=== PATIENT | female | born 1970 | race Caucasian/White ===

== ENCOUNTER 2017-02-22 19:09 | Inpatient (IN) | payer BC ==
[~2017-02-22] VITALS: Ht 157.5 cm; Wt 96.8 kg
[~2017-02-22 19:09] MED LIST: ATROPINE SULFATE 0.1 MG/ML 10 ML SYRINGE IVP ONE; DEXTROSE 50%-WATER 25 GM/50 ML SYRINGE IVP ONE; EPINEPHrine 1:10,000 [1 MG/10 ML] SYRINGE IVP ONE; SODIUM BICARBONATE [ADULT] 8.4% 50 MEQ/50 ML SYRINGE IVP ONE
[2017-02-22] MEDS ORDERED: NOREPINEPHRINE 4 MG/D5%-WATER 250 ML IV PRN (19:30)
[2017-02-22 19:38] LABS: BASOPHILS % (AUTO) 0.5 % (0.0-2.0); HEMATOCRIT 28.5 % (36-46); HEMOGLOBIN 8.7 g/dL (12.0-16.0); LYMPHOCYTES # (AUTO) 2.1 K/uL (1.0-4.8); LYMPHOCYTES % (AUTO) 42.2 % (22.0-44.0); MEAN CORPUSCULAR HEMOGLOBIN 23.1 pg (26.0-34.0); MEAN CORPUSCULAR HGB CONC 30.6 G/dL (31.0-37.0); MEAN CORPUSCULAR VOLUME 75 fL (80-100); MONOCYTES # (AUTO) 0.2 K/uL (0.1-1.0); MONOCYTES % (AUTO) 3.7 % (2.0-9.0); NEUTROPHILS # (AUTO) 2.7 K/uL (1.8-7.7); NEUTROPHILS % (AUTO) 52.6 % (40.0-70.0); PLATELET COUNT (AUTO) 130 K/uL (150-450); RED BLOOD CELL COUNT(AUTO) 3.79 MIL/uL (4.00-5.20); RED CELL DISTRIBUTION WIDTH 22.7 % (11.5-14.5); WHITE BLOOD COUNT (AUTO) 5.1 K/uL (4.5-11.0)
[2017-02-22 19:49] LABS: INR 1.3 (0.9-1.1); PROTHROMBIN TIME 13.4 SEC (9.4-11.6)
[2017-02-22 19:56] LABS: RBC MORPHOLOGY COMMENT ABNORMAL RBC MORPH
[2017-02-22 19:58] LABS: B-TYPE NATRIURETIC PEPTIDE 256 pg/mL (0-100)
[2017-02-22 20:07] LABS: ALANINE AMINOTRANSFERASE 58 U/L (12-78); ANION GAP 19 mmol/L (8-16); ASPARTATE AMINOTRANSFERASE 85 U/L (15-37); BILIRUBIN,TOTAL 0.4 mg/dL (0.1-1.0); CALCIUM, TOTAL 7.9 mg/dL (8.8-10.5); CARBON DIOXIDE 18 mmol/L (22-29); CHLORIDE 95 mmol/L (98-107); CREATINE KINASE, TOTAL 273 U/L (26-192); CREATININE 1.27 mg/dL (0.60-1.30); GLOMERULAR FILTR. RATE CALC 45 mL/min (>60); POTASSIUM 3.9 mmol/L (3.5-5.1); SODIUM SERUM 132 mmol/L (136-145); UREA NITROGEN, BLOOD 8 mg/dL (7-18)
[2017-02-22 20:08] LABS: ALBUMIN 2.7 g/dL (3.4-5.0); TOTAL PROTEIN, SERUM 7.3 g/dL (6.4-8.2)
[2017-02-22 20:11] LABS: CREATINE KINASE MB 3.9 ng/mL (0-5)
[2017-02-22 20:19] LABS: ABG A-A DIFF O2 497.9 mmHg (10-20.0); ABG BASE EXCESS -21.2 mmol/L (-2.0-3.0); ABG OXYHEMOGLOBIN 93.9 % (94.0-100.0); ABG PCO2 60 mmHg (35-45); TEMPERATURE, FAHRENHEIT, BG 95.9 FAHREN (96.0-98.6)
[2017-02-22 20:21] LABS: ABG PH 6.904 (7.35-7.450)
[2017-02-22 20:22] LABS: ALLEN TEST, BLOOD GAS NO
[2017-02-22] MEDS ORDERED: PHENYLEPHRINE 200 MG/D5%-WATER 250 ML IV PRN (20:30)
[2017-02-22] MEDS ORDERED: PROPOFOL 1000 MG/ISO-OSM 100 ML IV PRN (21:32)
[2017-02-22] MEDS ORDERED: ALBUTEROL SULFATE 2.5 MG/0.5 ML NEB SOLUTION NEB PRN (21:45)
[2017-02-22] MEDS ORDERED: MORPHINE SULFATE 2 MG/ML SYRINGE IVP PRN (21:45)
[2017-02-22] MEDS ORDERED: DEXTROSE 50%-WATER 25 GM/50 ML SYRINGE IVP PRN (21:45)
[2017-02-22] MEDS ORDERED: ACETAMINOPHEN 325 MG TABLET PO PRN (21:45)
[2017-02-22 22:29] LABS: APPEARANCE,URINE CLOUDY (CLEAR); GLUCOSE, URINE (UA) >=1000 mg/dL (NEGATIVE); KETONES,URINE NEGATIVE (NEGATIVE); LEUKOCYTE ESTERASE ,URINE NEGATIVE (NEGATIVE); OCCULT BLOOD,URINE LARGE (NEGATIVE); PROTEIN,URINE SEE CONFIRM (NEGATIVE)
[2017-02-22 22:43] LABS: ADD UA MICROSCOPIC YES
[2017-02-22 23:13] LABS: SULFOSALICYLIC ACID,URINE 2+ (Negative)
[2017-02-22] MEDS ORDERED: SODIUM CHLORIDE 0.9% 250 ML IV ONE (23:52)
[2017-02-22] MEDS: HEPARIN SODIUM,PORCINE 5,000 UNITS/ML VIAL SQ SCH (23:56)
[2017-02-23] VITALS (7 sets, daily range): BP systolic 44–103; BP diastolic 27–74
[2017-02-23] MEDS: INSULIN ASPART 100 UNITS/ML SQ PRN ×2 (00:02→05:12)
[2017-02-23] MEDS ORDERED: INFLUENZA VIRUS VACCINE QVS 2016-17 (3YR+)/PF 60 MCG/0.5 ML SYRINGE IM ONE (01:30)
[2017-02-23] MEDS ORDERED: PNEUMOCOCCAL VACCINE POLYVALENT 0.5 ML VIAL [PPSV23] IM ONE (01:30)
[2017-02-23] MEDS ORDERED: 0.9% SODIUM CHLORIDE 10 ML SYRINGE IVP PRN (01:30)
[2017-02-23] MEDS: IPRATROPIUM BROMIDE 0.5 MG/2.5 ML NEB SOLUTION NEB SCH ×4 (01:55→22:29)
[2017-02-23] MEDS: ALBUTEROL SULFATE 2.5 MG/0.5 ML NEB SOLUTION NEB SCH ×4 (01:55→22:29)
[2017-02-23] MEDS ORDERED: PHENYLEPHRINE 200 MG/D5%-WATER 250 ML IV PRN (02:18)
[2017-02-23] MEDS: NOREPINEPHRINE 4 MG/D5%-WATER 250 ML IV PRN ×2 (02:27→06:33)
[2017-02-23 05:45] LABS: HEMOGLOBIN A1C 7.1 % (4.5-6.2)
[2017-02-23 05:51] LABS: ALBUMIN 3.1 g/dL (3.4-5.0); BILIRUBIN,TOTAL 0.6 mg/dL (0.1-1.0); CALCIUM, TOTAL 7.7 mg/dL (8.8-10.5); CHOL/HDL RATIO 8.9 (3.9-5.7); CREATININE 1.91 mg/dL (0.60-1.30); THYROID STIMULATING HORMONE 25.54 uIU/mL (0.36-3.74); TOTAL PROTEIN, SERUM 7.9 g/dL (6.4-8.2)
[2017-02-23 05:53] LABS: BASOPHILS % (AUTO) 0.3 % (0.0-2.0); EOSINOPHILS % (AUTO) 1.4 % (1.0-6.0); HEMATOCRIT 32.6 % (36-46); HEMOGLOBIN 10.1 g/dL (12.0-16.0); LYMPHOCYTES # (AUTO) 2.5 K/uL (1.0-4.8); LYMPHOCYTES % (AUTO) 26.7 % (22.0-44.0); MEAN CORPUSCULAR VOLUME 74 fL (80-100); MONOCYTES # (AUTO) 0.1 K/uL (0.1-1.0); MONOCYTES % (AUTO) 1.3 % (2.0-9.0); NEUTROPHILS # (AUTO) 6.7 K/uL (1.8-7.7); NEUTROPHILS % (AUTO) 70.3 % (40.0-70.0); PLATELET COUNT (AUTO) 330 K/uL (150-450); RED BLOOD CELL COUNT(AUTO) 4.39 MIL/uL (4.00-5.20); RED CELL DISTRIBUTION WIDTH 22.7 % (11.5-14.5); WHITE BLOOD COUNT (AUTO) 9.5 K/uL (4.5-11.0)
[2017-02-23 05:53] LABS: ABG A-A DIFF O2 580.8 mmHg (10-20.0); ABG BASE EXCESS -6.5 mmol/L (-2.0-3.0); ABG HCO3 20.4 mmol/L (22.0-26.0); ABG OXYHEMOGLOBIN 97.8 % (94.0-100.0); ABG PCO2 22 mmHg (35-45); ABG PH 7.496 (7.35-7.450); ALLEN TEST, BLOOD GAS Positive; TEMPERATURE, FAHRENHEIT, BG 95.9 FAHREN (96.0-98.6)
[2017-02-23 06:48] LABS: RBC MORPHOLOGY COMMENT ABNORMAL RBC MORPH
[2017-02-23 07:14] LABS: POTASSIUM 2.8 mmol/L (3.5-5.1)
[2017-02-23] MEDS ORDERED: VASOPRESSIN 100 UNITS in DEXTROSE 5%-WATER 245 ML IV PRN (07:45)
[2017-02-23] MEDS ORDERED: SODIUM CHLORIDE 0.9% 1,000 ML IV ONE (08:00)
[2017-02-23] MEDS: HEPARIN SODIUM,PORCINE 5,000 UNITS/ML VIAL SQ SCH ×2 (08:00→16:00)
[2017-02-23] MEDS: POTASSIUM CHL 10 MEQ/WATER 50 ML IV SCH ×3 (08:00→11:00)
[2017-02-23] MEDS ORDERED: PHENYLEPHRINE HCL 800 MG in DEXTROSE 5%-WATER 170 ML IV PRN (08:49)
[2017-02-23] MEDS ORDERED: PANTOPRAZOLE SODIUM 40 MG/VIAL IVP SCH (09:00)
[2017-02-23] MEDS: DOPamine HCL 800 MG/D5%-WATER 250 ML IV PRN ×2 (09:00→22:15)
[2017-02-23] MEDS ORDERED: SODIUM CHLORIDE 0.9% 500 ML IV ONE ×3 (09:17→12:00)
[2017-02-23] MEDS: NOREPINEPHRINE BITARTRATE 16 MG in DEXTROSE 5%-WATER 234 ML IV PRN ×2 (10:00→22:16)
[2017-02-23 10:02] LABS: GLUCOSE,POINT OF CARE 300 MG/DL (70-110)
[2017-02-23 10:02] LABS: GLUCOSE COMMENT 1 Received Meds; GLUCOSE,POINT OF CARE 176 MG/DL (70-110)
[2017-02-23 10:39] LABS: ABG A-A DIFF O2 624.6 mmHg (10-20.0); ABG BASE EXCESS -15.5 mmol/L (-2.0-3.0); ABG HCO3 12.7 mmol/L (22.0-26.0); ABG OXYHEMOGLOBIN 69.3 % (94.0-100.0); ABG PCO2 39 mmHg (35-45); TEMPERATURE, FAHRENHEIT, BG 98.6 FAHREN (96.0-98.6)
[2017-02-23 10:41] LABS: ABG PH 7.151 (7.35-7.450)
[2017-02-23] MEDS ORDERED: SODIUM BICARBONATE [ADULT] 8.4% 50 MEQ/50 ML SYRINGE IVP ONE ×3 (10:56→22:56)
[2017-02-23] MEDS: SODIUM BICARBONATE 150 MEQ in DEXTROSE 5%-WATER 1,000 ML IV SCH ×2 (11:00→19:58)
[2017-02-23] MEDS ORDERED: ALBUMIN HUMAN 25%-12.5GM/50ML 100 ML ONE (11:23)
[2017-02-23] MEDS ORDERED: ALBUMIN HUMAN 25%-12.5GM/50ML 50 ML IV ONE ×2 (11:30→12:00)
[2017-02-23 11:59] LABS: CALCIUM, TOTAL 7.2 mg/dL (8.8-10.5); CREATININE 2.52 mg/dL (0.60-1.30); POTASSIUM 4.4 mmol/L (3.5-5.1)
[2017-02-23 13:36] LABS: ABG A-A DIFF O2 623.2 mmHg (10-20.0); ABG BASE EXCESS -19.2 mmol/L (-2.0-3.0); ABG HCO3 10.3 mmol/L (22.0-26.0); ABG OXYHEMOGLOBIN 70.2 % (94.0-100.0); ABG PCO2 36 mmHg (35-45); TEMPERATURE, FAHRENHEIT, BG 98.6 FAHREN (96.0-98.6)
[2017-02-23] MEDS ORDERED: EPINEPHrine 1:10,000 [1 MG/10 ML] SYRINGE IVP ONE (22:56)
[2017-02-23] MEDS ORDERED: ATROPINE SULFATE 0.1 MG/ML 10 ML SYRINGE IVP ONE (22:56)
== END 2017-02-23 22:57 | disposition expired | DRG 710 ==
LOC: EDBD 19:11 → EMS 19:11 → ICU 22:52 → EMS 23:30 → UNDOADMIN 23:34 → ICU 23:34
PROVIDERS: ADMIT Hospitalist; ATTEND Hospitalist
PROC: 5A12012 Performance of Cardiac Output, Single, Manual (ICD-10-PCS; 2017-02-22)
PROC: 0BH18EZ Insertion of Endotracheal Airway into Trachea, Via Natural or Artificial Opening Endoscopic (ICD-10-PCS; 2017-02-22)
PROC: 5A1935Z Respiratory Ventilation, Less than 24 Consecutive Hours (ICD-10-PCS; 2017-02-22)
PROC: 0DH67UZ Insertion of Feeding Device into Stomach, Via Natural or Artificial Opening (ICD-10-PCS; 2017-02-22)
PROC: 05HN33Z Insertion of Infusion Device into Left Internal Jugular Vein, Percutaneous Approach (ICD-10-PCS; 2017-02-22)
PROC: B544ZZA Ultrasonography of Left Jugular Veins, Guidance (ICD-10-PCS; 2017-02-22)
PROC: 03HY32Z Insertion of Monitoring Device into Upper Artery, Percutaneous Approach (ICD-10-PCS; principal; 2017-02-23)
PROC: 4A133B1 Monitoring of Arterial Pressure, Peripheral, Percutaneous Approach (ICD-10-PCS; 2017-02-23)
PROC: 4A133J1 Monitoring of Arterial Pulse, Peripheral, Percutaneous Approach (ICD-10-PCS; 2017-02-23)
DX: A41.9 Sepsis, unspecified organism (principal); I46.9 Cardiac arrest, cause unspecified; G93.6 Cerebral edema; I60.9 Nontraumatic subarachnoid hemorrhage, unspecified; D69.6 Thrombocytopenia, unspecified; E43 Unspecified severe protein-calorie malnutrition; E87.2 Acidosis; J96.01 Acute respiratory failure with hypoxia; N17.0 Acute kidney failure with tubular necrosis; R57.9 Shock, unspecified; G93.1 Anoxic brain damage, not elsewhere classified; D64.9 Anemia, unspecified; E11.9 Type 2 diabetes mellitus without complications; E87.1 Hypo-osmolality and hyponatremia; G40.909 Epilepsy, unspecified, not intractable, without status epilepticus; E66.01 Morbid (severe) obesity due to excess calories; F15.10 Other stimulant abuse, uncomplicated; F17.210 Nicotine dependence, cigarettes, uncomplicated; I25.10 Atherosclerotic heart disease of native coronary artery without angina pectoris; F19.10 Other psychoactive substance abuse, uncomplicated; E87.6 Hypokalemia; C52 Malignant neoplasm of vagina; I10 Essential (primary) hypertension; K75.9 Inflammatory liver disease, unspecified; Z91.19 Patient's noncompliance with other medical treatment and regimen; Z95.5 Presence of coronary angioplasty implant and graft; Z68.39 Body mass index [BMI] 39.0-39.9, adult
CPT/HCPCS: 31500; 36556; 70450; 82306; 82607; 82746; 82805; 82962; 83036; 83540; 83550; 84443; 87081; 87086; 87147; 92950; 93005; 94002; 94003; 94640; 96365; 96366; 99291; C9113; J0171; J0461; J1265; J1644; J2370; J3480; J3490; J7030; J7040; J7050; J7060; P9047